=== PATIENT | male | born 1985 | race Caucasian/White ===

== ENCOUNTER 2022-08-19 19:56 | Emergency (ER) | payer SELFPAY ==
[2022-08-19 20:06] VITALS: BP 135/89; PULSE 97; RESP 18; TEMP 37.2; O2SAT 98; BMI 40.9
[2022-08-19 20:16] VITALS: BP 200/120; PULSE 100; O2SAT 100
[2022-08-19 22:14] VITALS: BP 145/86; PULSE 76; RESP 18; TEMP 37.2; O2SAT 100
== END 2022-08-19 22:45 | disposition left against medical advice (07) ==
PROVIDERS: Emergency Provider Emergency Medicine
DX: M79.605 Pain in left leg (principal); Z79.899 Other long term (current) drug therapy
CPT/HCPCS: 99283